=== PATIENT | male | born 1985 | race Caucasian/White ===

== ENCOUNTER 2019-11-20 20:13 | Emergency (ER) | payer OTHER ==
[2019-11-20 20:21] VITALS: BP 143/91; PULSE 117; RESP 18; TEMP 98.8
[2019-11-20 21:01] LABS: Basophils % (A) 0 %; Eosinophils # (A) 0.1 k/uL (0-0.7); Eosinophils % (A) 1 %; HCT 46.6 % (39.0-53.0); HGB 15.6 gm/dL (13.0-17.5); Lymphocytes % (A) 14 %; MCH 32.6 pg (25.0-35.0); MCHC 33.5 g/dL (31.0-37.0); MCV 97.4 fL (80.0-100.0); Mean Platelet Volume 7.2; Monocytes # (A) 0.6 k/uL (0-1.0); Monocytes % (A) 4 %; Neutrophils # (A) 10.9 k/uL (1.3-7.7); Neutrophils % (A) 79 %; Platelet Count 289 k/uL (150-450); RBC 4.78 m/uL (4.30-5.90); RDW 12.8 % (11.5-15.5); WBC 13.8 k/uL (3.8-10.6)
[2019-11-20 21:04] LABS: Creatine Kinase 124 U/L (55-170)
[2019-11-20] MEDS ORDERED: MORPHINE SULFATE 4 MG/ML SYRINGE IVP STA (21:05)
[2019-11-20 21:07] LABS: ALT 25 U/L (4-49); AST 23 U/L (17-59); African American GFR (CKD) >90 (>60 ml/min/1.73 sqM); Albumin 4.9 g/dL (3.5-5.0); Alcohol <10 mg/dL; Alkaline Phosphatase 50 U/L (38-126); Amylase 56 U/L (30-110); Anion Gap 11 mmol/L; Blood Urea Nitrogen 21 mg/dL (9-20); Calcium 9.7 mg/dL (8.4-10.2); Carbon Dioxide 27 mmol/L (22-30); Chloride 103 mmol/L (98-107); Glucose 107 mg/dL (74-99); Non-African American GFR(CKD) >90 (>60 ml/min/1.73 sqM); Potassium 4.3 mmol/L (3.5-5.1); Sodium 141 mmol/L (137-145); Total Bilirubin 0.3 mg/dL (0.2-1.3)
[2019-11-20 21:08] LABS: Appearance,Urine Clear (Clear); Bilirubin,Urine Negative (Negative); Blood,Urine Negative (Negative); Color,Urine Yellow; Glucose,Urine (UA) Negative (Negative); Ketones,Urine Negative (Negative); Leukocyte Esterase,Urine Negative (Negative); Nitrite,Urine Negative (Negative); Protein,Urine Negative (Negative); Specific Gravity,Urine 1.018 (1.001-1.035); Urobilinogen,Urine <2.0 mg/dL (<2.0)
[2019-11-20] MEDS ORDERED: KETOROLAC 30 MG/ML 1 ML VIAL IVP ONE (21:10)
[2019-11-20 21:17] LABS: Partial Thromboplastin Time 24.3 sec (22.0-30.0); Prothrombin Time 10.1 sec (9.0-12.0)
[2019-11-20 21:18] LABS: Creatine Kinase MB 0.8 ng/mL (0.0-2.4); Troponin I <0.012 ng/mL (0.000-0.034)
[2019-11-20 21:19] LABS: Amphetamine Screen,Urine Not Detected (NotDetected); Barbiturate Screen,Urine Not Detected (NotDetected); Benzodiazepines Screen,Urine Not Detected (NotDetected); Cocaine Screen,Urine Not Detected (NotDetected); Methadone Screen, Urine Not Detected (NotDetected); Opiate Screen,Urine Not Detected (NotDetected); Oxycodone Screen, Urine Not Detected (NotDetected); Phencyclidine Screen,Urine Not Detected (NotDetected); Tricyclic Antidepressant,Urine Not Detected (NotDetected); Urn Cannabinoid Scrn Not Detected (NotDetected)
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
[2019-11-20] MEDS ORDERED: LIDOCAINE 1%-EPI 1:100,000 20 ML VIAL SQ STA (22:51)
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
[2019-11-21] MEDS ORDERED: CEPHALEXIN 500 MG CAP PO STA (00:03)
== END 2019-11-21 00:15 | disposition home or self-care (01) ==
LOC: EC 20:13
DX: S89.302A Unspecified physeal fracture of lower end of left fibula, initial encounter for closed fracture (principal); S82.202A Unspecified fracture of shaft of left tibia, initial encounter for closed fracture; D72.829 Elevated white blood cell count, unspecified; V28.4XXA Motorcycle driver injured in noncollision transport accident in traffic accident, initial encounter; Y93.89 Activity, other specified; Y92.410 Unspecified street and highway as the place of occurrence of the external cause
CPT/HCPCS: 99284; 96374; 29515; 36415; 93005; 86900; 86901; 80053; 82150; 82550; 82553; 83605; 83690; 84484; 85025; 85610; 85730; 86850; 81003; 80306; 80320; 72170; 73590; 73610; 71045; J1885

== ENCOUNTER 2019-11-25 21:01 | Inpatient (IN) | payer OTHER ==
[2019-11-25] MEDS ORDERED: VANCOMYCIN IV PER PHARMACY 1 EACH MISC MISCELLANE PRN (21:50)
[2019-11-25] MEDS ORDERED: MORPHINE SULFATE 4 MG/ML SYRINGE IVP PRN (21:50)
[2019-11-25] MEDS ORDERED: PIPERACILLIN-TAZOBACTAM 3.375 GM in SODIUM CHLORIDE 0.9% 100 ML IVPB STA (21:55)
[2019-11-25 22:12] LABS: Basophils % (A) 0 %; Eosinophils # (A) 0.3 k/uL (0-0.7); Eosinophils % (A) 3 %; HCT 41.4 % (39.0-53.0); HGB 13.1 gm/dL (13.0-17.5); Lymphocytes # (A) 2.1 k/uL (1.0-4.8); Lymphocytes % (A) 20 %; MCH 30.5 pg (25.0-35.0); MCHC 31.7 g/dL (31.0-37.0); MCV 96.2 fL (80.0-100.0); Monocytes # (A) 0.7 k/uL (0-1.0); Monocytes % (A) 6 %; Neutrophils # (A) 7.5 k/uL (1.3-7.7); Neutrophils % (A) 69 %; Platelet Count 312 k/uL (150-450); RDW 12.5 % (11.5-15.5); WBC 10.8 k/uL (3.8-10.6)
[2019-11-25 22:25] LABS: ALT 28 U/L (4-49); AST 26 U/L (17-59); African American GFR (CKD) >90 (>60 ml/min/1.73 sqM); Albumin 4.2 g/dL (3.5-5.0); Alkaline Phosphatase 50 U/L (38-126); Anion Gap 9 mmol/L; Blood Urea Nitrogen 19 mg/dL (9-20); Calcium 9.4 mg/dL (8.4-10.2); Carbon Dioxide 28 mmol/L (22-30); Chloride 102 mmol/L (98-107); Glucose 110 mg/dL (74-99); Non-African American GFR(CKD) >90 (>60 ml/min/1.73 sqM); Sodium 139 mmol/L (137-145); Total Bilirubin 0.4 mg/dL (0.2-1.3); Total Protein 7.1 g/dL (6.3-8.2)
[2019-11-25] MEDS ORDERED: VANCOMYCIN 1,750 MG in SODIUM CHLORIDE 0.9% 500 ML 500 ML IVPB ONE (22:30)
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
[2019-11-25] MEDS ORDERED: SODIUM CHLORIDE 0.9% 1,000 ML IV ONE (23:08)
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
[2019-11-25] MEDS ORDERED: ACETAMINOPHEN TAB 325 MG TAB PO PRN (23:30)
[2019-11-25] MEDS ORDERED: NALOXONE 0.4 MG/ML 1 ML VIAL IV PRN (23:30)
[2019-11-25] MEDS: SODIUM CHLORIDE 0.9% 1,000 ML IV SCH (23:36)
[2019-11-26] MEDS: VANCOMYCIN 1,500 MG in SODIUM CHLORIDE 0.9% 250 ML IVPB SCH ×2 (08:22→14:00)
[2019-11-26] MEDS: PIPERACILLIN-TAZOBACTAM 3.375 GM in SODIUM CHLORIDE 0.9% 100 ML IVPB SCH ×2 (08:22→17:41)
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
--- NOTE | 2019-11-26 13:35 | US ---
EXAMINATION TYPE: US venous doppler duplex LE LT DATE OF EXAM: 11/26/2019 1:25 PM COMPARISON: NONE CLINICAL HISTORY: Swelling, pain. SIDE PERFORMED: Left TECHNIQUE: The lower extremity deep venous system is examined utilizing real time linear array sonog thanh with graded compression, doppler sonography and color-flow sonography. VESSELS IMAGED: External Iliac Vein (EIV) Common Femoral Vein Deep Femoral Vein Greater Saphenous Vein * Femoral Vein Popliteal Vein Small Saphenous Vein * Proximal Calf Veins (* superficial vessels) Left Leg: Negative for DVT IMPRESSION: 1. Left lower extremity ultrasound negative for deep venous thrombosis.
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
[2019-11-26] MEDS ORDERED: IV FLUID CONTINUATION 1,000 ML IV ONE (16:12)
[2019-11-26] MEDS ORDERED: ONDANSETRON 4 MG/2 ML VIAL IVP ONE (16:24)
[2019-11-26] MEDS ORDERED: LACTATED RINGERS 1,000 ML IV ONE (17:24)
[2019-11-26] MEDS ORDERED: HYDROcodone/APAP 5-325MG 1 EACH TAB PO PRN (18:20)
[2019-11-26] MEDS ORDERED: hydrOXYzine PAMOATE 25 MG CAP PO PRN (18:20)
[2019-11-26] MEDS ORDERED: SENNOSIDES-DOCUSATE SODIUM 1 EACH TAB PO PRN (18:20)
[2019-11-26] MEDS ORDERED: MEPERIDINE 50 MG/ML SYRINGE IVP ONE ×2 (18:22→18:50)
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
[2019-11-26] MEDS ORDERED: HYDROmorphone 1 MG/ML 1 ML SYRINGE IVP ONE (19:20)
[2019-11-26] MEDS ORDERED: SODIUM CHLORIDE 0.9% 1,000 ML IV ONE (19:29)
[2019-11-26] MEDS: HEPARIN SODIUM,PORCINE 5,000 UNIT/ML 1 ML VIAL SQ SCH (21:03)
[2019-11-26] MEDS: FAMOTIDINE 20 MG/2 ML VIAL IV SCH (21:03)
[2019-11-26] MEDS: HYDROcodone/APAP 5-325MG 1 EACH TAB PO PRN (22:08)
[2019-11-26] MEDS: SODIUM CHLORIDE 0.9% 1,000 ML IV SCH (23:11)
[2019-11-26] MEDS: CEFEPIME 2 GM in SODIUM CHLORIDE 0.9% 100 ML IVPB SCH (23:18)
[2019-11-27] MEDS: VANCOMYCIN 1,500 MG in SODIUM CHLORIDE 0.9% 250 ML IVPB SCH ×4 (00:16→22:53)
[2019-11-27] MEDS ORDERED: VANCOMYCIN TROUGH DUE 1 EACH MISC MISCELLANE ONE ×2 (05:00→21:00)
[2019-11-27] MEDS: SODIUM CHLORIDE 0.9% 1,000 ML IV SCH ×3 (05:21→22:54)
[2019-11-27 05:46] LABS: Basophils % (A) 1 %; Eosinophils # (A) 0.2 k/uL (0-0.7); Eosinophils % (A) 3 %; HCT 36.5 % (39.0-53.0); HGB 11.9 gm/dL (13.0-17.5); Lymphocytes # (A) 1.9 k/uL (1.0-4.8); Lymphocytes % (A) 24 %; MCH 32.1 pg (25.0-35.0); MCHC 32.7 g/dL (31.0-37.0); MCV 98.2 fL (80.0-100.0); Mean Platelet Volume 7.7; Monocytes # (A) 0.5 k/uL (0-1.0); Monocytes % (A) 6 %; Neutrophils # (A) 5.1 k/uL (1.3-7.7); Neutrophils % (A) 64 %; Platelet Count 295 k/uL (150-450); RBC 3.72 m/uL (4.30-5.90); RDW 12.5 % (11.5-15.5); WBC 7.9 k/uL (3.8-10.6)
[2019-11-27 05:57] LABS: African American GFR (CKD) >90 (>60 ml/min/1.73 sqM); Anion Gap 5 mmol/L; Blood Urea Nitrogen 11 mg/dL (9-20); Carbon Dioxide 28 mmol/L (22-30); Chloride 107 mmol/L (98-107); Glucose 106 mg/dL (74-99); Non-African American GFR(CKD) >90 (>60 ml/min/1.73 sqM); Sodium 140 mmol/L (137-145)
[2019-11-27] MEDS: HEPARIN SODIUM,PORCINE 5,000 UNIT/ML 1 ML VIAL SQ SCH ×2 (09:20→21:19)
[2019-11-27] MEDS: CEFEPIME 2 GM in SODIUM CHLORIDE 0.9% 100 ML IVPB SCH ×2 (09:20→21:19)
[2019-11-27] MEDS: FAMOTIDINE 20 MG/2 ML VIAL IV SCH ×2 (09:21→21:19)
[2019-11-27] MEDS: IBUPROFEN 400 MG TAB PO PRN ×2 (14:06→21:17)
--- NOTE | 2019-11-27 17:51 | P.PN ---
Subjective Progress Note Date: 11/27/19 This patient is a 34- year old male that is status-post irrigation and debridement of left leg wound with application of a wound vac on 11/26/[address] Vance. Today is post-operative day #1. Patient is examined bedside. Patient states he currently feels well, he did have a headache last night but it has subsided after he ate food. He is complaining of only mild pain in the left lower extremity. Wound vac remains in place. He denies any new complaints today. Patient denies chest pain, shortness of breath, nausea, vomiting, fevers, chills. He denies any new numbness or tingling of the left lower extremity. Vital signs stable. Objective - Vital Signs Vital signs: Vital Signs Temp 97.7 F 11/27/19 07:46 Pulse 78 11/27/19 07:46 Resp 14 11/27/19 08:19 BP 135/75 11/27/19 07:46 Pulse Ox 100 11/27/19 07:46 Intake & Output 11/26/19 11/27/19 11/27/19 18:59 06:59 18:59 Intake Total 800 300 800 Output Total 30 3300 Balance 770 -3000 800 Intake: IV 700 300 Oral 100 800 Output: Urine 3300 Estimated Blood Loss 30 Other: Voiding Method Toilet Toilet # Voids 1 - Exam On examination, patient is sitting in bed in no apparent distress. He is alert and orientated x3. On inspection of the left lower extremity, there is a wound vac in place with an overlying KOFI wrap. The KOFI wrap us clean, dry, and intact. The left foot is warm and well perfused, dorsalis pedis pulse +2. Patient is able to actively dorsiflex and plantar flex the foot. Sensation is intact to light touch of the foot, although patient states he experiences chronic numbness due to a prior injury. - Labs CBC & Chem 7: 11/27/19 05:34 11/27/19 05:34 Labs: Abnormal Lab Results - Last 24 Hours (Table) 11/27/19 11/27/19 Range/Units 05:34 05:34 RBC 3.72 L (4.30-5.90) m/uL Hgb 11.9 L (13.0-17.5) gm/dL Hct 36.5 L (39.0-53.0) % Glucose 106 H (74-99) mg/dL Calcium 8.0 L (8.4-10.2) mg/dL Microbiology - Last 24 Hours (Table) 11/26/19 17:48 Gram Stain - Preliminary Leg - Left Tissue Culture - Preliminary 11/26/19 17:48 Anaerobic Culture - Preliminary Leg - Left 11/26/19 17:48 Fungal Culture - Preliminary Leg - Left 11/26/19 17:48 Gram Stain - Preliminary Leg - Left Wound Culture - Preliminary 11/26/19 17:48 Fungal Culture - Preliminary Leg - Left 11/26/19 17:48 Anaerobic Culture - Preliminary Leg - Left 11/25/19 22:00 Blood Culture - Preliminary Blood No Growth after 24 hours Assessment and Plan Assessment: Traumatic laceration of the left lower leg, with surrounding cellulitis and abscess status-post irrigation and debridement with application of wound vac on 11/26/19 Left distal fibula fracture Plan: - We will plan for the OR tomorrow 11/28/19 for removal of the wound vac, irrigation and debridement with possible closure of the left leg wound. - Antibiotic management per infectious disease. Intraoperative cultures currently pending. - Pain management as needed. - Non-weight bearing left leg in tall CAM boot. - NPO diet at midnight.
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
--- NOTE | 2019-11-27 23:26 | PN ---
PROGRESS NOTE DATE OF SERVICE: 11/27/2019 REASON FOR FOLLOWUP: Left leg abscess. INTERVAL HISTORY: The patient was taken to the OR yesterday. He is status post drainage of the left leg infected hematoma. The patient has tolerated the procedure. Pain is currently controlled. No chest pain, shortness of breath or cough. No abdominal pain or diarrhea. PHYSICAL EXAMINATION: Blood pressure 135/79 with a pulse of 88, temperature 98.1. He is 96% on room air. General description is a young male lying in bed in no distress. RESPIRATORY SYSTEM: Unlabored breathing. Clear to auscultation anteriorly. HEART: S1, S2. Regular rate and rhythm. ABDOMEN: Soft. No tenderness. Left leg is currently dressed up with a wound V.A.C. No drainage on the dressing. LABS: Hemoglobin 11.9, white count 7.9, BUN of 11, creatinine 0.79. Vancomycin trough is low. Cultures are currently pending. DIAGNOSTIC IMPRESSION AND PLAN: Patient with a left leg abscess and cellulitis, status post surgical drainage. Cultures are currently pending. Patient to continue cefepime and vancomycin. He will likely need a PICC line; however, outpatient antibiotics depending upon the culture report. Continue with supportive care. MMODL / IJN: [id number] /
[2019-11-28] MEDS: VANCOMYCIN 1,500 MG in SODIUM CHLORIDE 0.9% 250 ML IVPB SCH ×2 (06:18→15:24)
[2019-11-28] MEDS: HEPARIN SODIUM,PORCINE 5,000 UNIT/ML 1 ML VIAL SQ SCH ×2 (08:52→22:30)
[2019-11-28] MEDS: FAMOTIDINE 20 MG/2 ML VIAL IV SCH ×2 (09:00→22:30)
[2019-11-28] MEDS: CEFEPIME 2 GM in SODIUM CHLORIDE 0.9% 100 ML IVPB SCH ×2 (09:00→22:29)
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
[2019-11-28 10:19] LABS: African American GFR (CKD) >90 (>60 ml/min/1.73 sqM); Anion Gap 4 mmol/L; Blood Urea Nitrogen 14 mg/dL (9-20); Calcium 8.5 mg/dL (8.4-10.2); Carbon Dioxide 27 mmol/L (22-30); Chloride 109 mmol/L (98-107); Glucose 95 mg/dL (74-99); Non-African American GFR(CKD) >90 (>60 ml/min/1.73 sqM); Potassium 4.7 mmol/L (3.5-5.1); Sodium 140 mmol/L (137-145)
[2019-11-28] MEDS ORDERED: IV FLUID CONTINUATION 1,000 ML IV ONE (12:35)
[2019-11-28] MEDS ORDERED: ONDANSETRON 4 MG/2 ML VIAL IVP ONE (12:41)
[2019-11-28] MEDS ORDERED: PROPOFOL 10 MG/ML 20 ML VIAL IV ONE (13:36)
[2019-11-28] MEDS ORDERED: LIDOCAINE 1% INJ 10MG/ML (20 ML MDV) ONE (13:36)
[2019-11-28] MEDS ORDERED: MIDAZOLAM 2 MG/2 ML VIAL ONE (13:36)
[2019-11-28] MEDS ORDERED: fentaNYL (PF) 50 MCG/ML 2 ML AMP ONE (13:36)
[2019-11-28] MEDS ORDERED: LACTATED RINGERS 1,000 ML IV ONE (14:13)
[2019-11-28] MEDS: HYDROcodone/APAP 5-325MG 1 EACH TAB PO PRN (15:14)
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
[2019-11-28] MEDS: SODIUM CHLORIDE 0.9% 1,000 ML IV SCH (19:29)
[2019-11-29] MEDS ORDERED: VANCOMYCIN 1,500 MG in SODIUM CHLORIDE 0.9% 250 ML IVPB SCH ×2
[2019-11-29] MEDS: IBUPROFEN 400 MG TAB PO PRN ×2 (02:20→21:50)
[2019-11-29] MEDS: diphenhydrAMINE 25 MG CAP PO PRN ×2 (02:37→21:51)
--- NOTE | 2019-11-29 02:55 | PN ---
PROGRESS NOTE DATE OF SERVICE: 11/28/2019 REASON FOR FOLLOWUP: Left leg abscess and cellulitis. INTERVAL HISTORY: The patient is currently afebrile, has been breathing comfortably. The patient denies having any chest pain. No shortness of breath or cough. No nausea, no vomiting. No abdominal pain. Pain to the left leg is currently controlled. PHYSICAL EXAMINATION: Blood pressure is 120/77 with a pulse of 63, temperature 98.1. He is 98% on room air. General description is a middle-aged male lying in bed in no distress. RESPIRATORY SYSTEM: Unlabored breathing, clear to auscultation anteriorly. HEART: S1, S2. Regular rate and rhythm. ABDOMEN: Soft, no tenderness. LABS: White count normal. Left leg wound culture did grow Citrobacter. DIAGNOSTIC IMPRESSION AND PLAN: Patient with left leg abscess, culture with Citrobacter. Continue with cefepime. Discontinue vancomycin and monitor clinical course closely. MMODL / IJN: [id number] /
--- NOTE | 2019-11-29 07:05 | P.OP ---
Date of Procedure: 11/28/19 Preoperative Diagnosis: Left leg abscess Postoperative Diagnosis: Same Procedure(s) Performed: 1. Irrigation and debridement of left leg abscess (and excisional debridement was performed using a scalpel of nonviable skin and subcutaneous tissue down to the level of muscle) 2. Partial closure of left leg wound 3. Removal of wound VAC, left leg Anesthesia: ENOCH Surgeon: Rubin Vance Payroll Administrator #1: Linda Briscoe Pathology: none sent Condition: stable Disposition: PACU Indications for Procedure: The patient is a very pleasant 34-year-old male who underwent an irrigation and debridement of the left leg abscess this past Tuesday. A wound VAC was applied. Due to the amount of purulence in his wound I recommended repeat irrigation and debridement of the wound and exploration to make sure that all the infection had been cleared. We discussed potential risks and complications of this of which the patient is well aware. He provided his consent to go forward with surgery. Operative Findings: There is a small amount of purulence which was thoroughly debrided and irrigated. The wound was partially closed over a Rolla drain. Description of Procedure: The patient was identified in preoperative holding and the correct left leg was marked with my initials. I reviewed the consent form with the patient and all of his questions were answered. The patient was then brought back to the operating room by anesthesia. He was positioned on the OR table where general anesthetic was given. The wound VAC was taken off the left leg. A bump was placed in the left buttock. The left leg was then prepped and draped in the standard sterile fashion. Prior to starting surgery timeout was performed identifying the correct patient, operative extremity, and procedure. I began by exploring the wound. There is a small amount of purulence which was thoroughly irrigated using 3 L of sterile saline and cystoscopy tubing. An excisional debridement was then performed using a scalpel of nonviable skin and subcutaneous tissue down to the level of the muscle. Overall the wound appeared clean. The wound was partially closed with 3-0 nylon sutures and a Rolla drain was inserted into the abscess cavity to allow continued drainage. A sterile dressing was applied. The patient was awoken from his anesthetic, transferred from the OR table to [facility], and brought to recovery having tolerated the procedure well. Plan: The patient is to remain nonweightbearing on his left leg in a boot. I would like to leave the Jenny drain in for 24-48 hours to allow continued drainage from the wound. At that time we will pull the drain and then defer wound care to infectious disease. I will defer all decisions regarding choice of antibiotic, route of administration, and duration of treatment to infectious disease. We will continue to closely follow the patient while he is an inpatient.
[2019-11-29] MEDS ORDERED: diphenhydrAMINE 25 MG CAP PO PRN (07:51)
[2019-11-29] MEDS ORDERED: diphenhydrAMINE 25 MG CAP PO STA (07:51)
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
[2019-11-29] MEDS: FAMOTIDINE 20 MG/2 ML VIAL IV SCH (08:19)
[2019-11-29] MEDS: HEPARIN SODIUM,PORCINE 5,000 UNIT/ML 1 ML VIAL SQ SCH ×2 (08:19→21:51)
[2019-11-29] MEDS: SODIUM CHLORIDE 0.9% 1,000 ML IV SCH ×2 (08:19→21:49)
[2019-11-29] MEDS: CEFEPIME 2 GM in SODIUM CHLORIDE 0.9% 100 ML IVPB SCH (08:19)
[2019-11-29 08:22] LABS: African American GFR (CKD) >90 (>60 ml/min/1.73 sqM); Anion Gap 5 mmol/L; Blood Urea Nitrogen 15 mg/dL (9-20); Calcium 8.5 mg/dL (8.4-10.2); Carbon Dioxide 27 mmol/L (22-30); Chloride 107 mmol/L (98-107); Glucose 109 mg/dL (74-99); Non-African American GFR(CKD) >90 (>60 ml/min/1.73 sqM); Potassium 4.5 mmol/L (3.5-5.1); Sodium 139 mmol/L (137-145)
--- NOTE | 2019-11-29 10:35 | P.PN ---
Subjective Progress Note Date: 11/29/19 This patient is a 34- year old male that is status-post irrigation and debridement of left leg wound with application of a wound vac on 11/26/19, and irrigation and debridement of left leg abscess, partial closure of left leg wound, and removal of wound vac on 11/28/19. Patient is examined bedside this morning. Patient is doing well with no complaints this morning. He states he noticed drainage through the Farrukh wrap. He states he has been up ambulating around his room, although he has been remaining nonweightbearing on the operative site. He is tolerating his diet well. Patient denies chest pain, shortness of breath, nausea, vomiting, fevers, chills. He denies any new numbness or tingling of the left lower extremity. Vital signs stable. Objective - Vital Signs Vital signs: Vital Signs Temp 97.7 F 11/29/19 08:13 Pulse 75 11/29/19 08:13 Resp 16 11/29/19 08:13 BP 132/74 11/29/19 08:13 Pulse Ox 96 11/29/19 08:13 Intake & Output 11/28/19 11/29/19 11/29/19 18:59 06:59 18:59 Intake Total 2380 600 540 Output Total 5 1800 Balance 2375 -1200 540 Weight 89.8 kg Intake: IV 1200 Intake, IV Titration 600 Amount Lactated Ringers 1,000 ml 100 @ 0 mls/hr IV [facility] Rx#:[id number] Vancomycin 1,500 mg In 500 Sodium Chloride 0.9% 250 ml @ 125 mls/hr IVPB Q8H [facility] Rx#:[id number] Oral 580 600 240 Other 300 Output: Urine 1800 Estimated Blood Loss 5 Other: Voiding Method Urinal Urinal # Voids 5 - Exam On examination, patient is sitting in bed in no apparent distress. He is alert and orientated x3. On inspection of the left lower extremity, there is an Farrukh wrap in place with drainage through the Farrukh wrap. Farrukh wrap was taken down and a dressing is placed. Jenny drain in place. The left foot is warm and well perfused, dorsalis pedis pulse +2. Patient is able to actively dorsiflex, plantar flex, valery, and invert the foot. Sensation is intact to light touch of the foot, although patient states he experiences chronic intermittent numbness due to a prior injury. Vital signs stable. - Labs CBC & Chem 7: 11/27/19 05:34 11/29/19 07:49 Labs: Abnormal Lab Results - Last 24 Hours (Table) 11/29/19 Range/Units 07:49 Glucose 109 H (74-99) mg/dL Microbiology - Last 24 Hours (Table) 11/25/19 22:00 Blood Culture - Preliminary Blood No Growth after 72 hours 11/26/19 17:48 Gram Stain - Final Leg - Left Tissue Culture - Final Citrobacter braakii Aeromonas hydrophila Enterobacte amnigenus biogrp 2 Group D Enterococcus 11/26/19 17:48 Anaerobic Culture - Preliminary Leg - Left 11/26/19 17:48 Anaerobic Culture - Preliminary Leg - Left 11/26/19 17:48 Gram Stain - Final Leg - Left Wound Culture - Final Citrobacter braakii Assessment and Plan Assessment: - Traumatic laceration of the left lower leg, with surrounding cellulitis and abscess status-post irrigation and debridement of left leg with application of a wound vac on 11/26/19, and irrigation and debridement of left leg abscess, partial closure of left leg wound, and removal of wound vac on 11/28/19 - Left distal fibula fracture Plan: - Keep current dressing in place on the left lower extremity. [place] drain is left in place and, we'll plan to pull the drain tomorrow. - Antibiotic management per infectious disease. Intraoperative cultures finalized, Dr. Pena planning for PICC line placement. - Pain management as needed. - Non-weight bearing left leg in tall CAM boot. - We will continue to follow patient closely.
[2019-11-29] MEDS ORDERED: CALAMINE/ZINC OXIDE LOTION 177 ML BTL TOPICAL PRN (11:25)
--- NOTE | 2019-11-29 15:00 | PN ---
PROGRESS NOTE DATE OF SERVICE: 11/29/2019 REASON FOR FOLLOWUP: Left leg abscess and cellulitis. INTERVAL HISTORY: Patient is currently afebrile, has been breathing comfortably. Overall pain and discomfort to the left leg is currently improved. No chest pain, shortness of breath or cough. No abdominal pain or diarrhea; some rash to the lower back area. PHYSICAL EXAMINATION: Blood pressure 132/74 with a pulse of 75. Temperature is 97.9, pulse ox 96% on room air. General description is a middle-aged male lying in bed in no distress. Respiratory system: Unlabored breathing. Clear to auscultation anteriorly. Heart S1, S2. Regular rate and rhythm. Abdomen: Soft. Nontender. Left leg is currently dressed up. The low back did have a rash, but no rash on the rest of the body. LABS: Wound culture now showing Citrobacter, Pseudomonas, Enterobacter, switched to Cefepime after showing group D Enterococcus. DIAGNOSTIC IMPRESSION AND PLAN: Patient with left leg abscess status post surgical drainage of multiple pathogens, currently on cefepime. Waiting for the Enterococcus. Antibiotics will be switched to Zosyn that should cover all the 4 bacteria and close outpatient followup. MMODL / IJN: [id number] /
[2019-11-29] MEDS: PIPERACILLIN-TAZOBACTAM 3.375 GM in SODIUM CHLORIDE 0.9% 100 ML IVPB SCH (17:05)
[2019-11-29] MEDS: FAMOTIDINE 20 MG TAB PO SCH (21:51)
[2019-11-30] MEDS: PIPERACILLIN-TAZOBACTAM 3.375 GM in SODIUM CHLORIDE 0.9% 100 ML IVPB SCH ×4 (02:18→23:23)
[2019-11-30] MEDS: HEPARIN SODIUM,PORCINE 5,000 UNIT/ML 1 ML VIAL SQ SCH ×2 (09:00→21:53)
[2019-11-30] MEDS ORDERED: ASPIRIN 81 MG PO SCH (09:00)
[2019-11-30] MEDS: FAMOTIDINE 20 MG TAB PO SCH ×2 (09:03→21:53)
[2019-11-30] MEDS ORDERED: LIDOCAINE 1% INJ 10MG/ML (20 ML MDV) ONE (12:35)
[2019-11-30] MEDS ORDERED: LIDOCAINE 1% INJ 10MG/ML (20 ML MDV) SQ ONE (12:41)
--- NOTE | 2019-11-30 12:50 | P.PN ---
Subjective Progress Note Date: 11/30/19 This patient is a 34- year old male that is status-post irrigation and debridement of left leg wound with application of a wound vac on 11/26/19, and irrigation and debridement of left leg abscess, partial closure of left leg wound, and removal of wound vac on 11/28/19. 11/30/19: Patient is examined bedside this morning. Patient states he is feeling well and has no complaints. Patient does have a dressing to the left lower leg. Jenny drain is still in place. Currently awaiting PICC line placement per Dr. Pena. Patient has not noticed any drainage through the dressing. Patient states he has been remaining nonweightbearing on the left lower extremity. Patient has been tolerating his diet well. Patient denies chest pain, shortness of breath, nausea, vomiting, fevers, chills. Vital signs stable. Objective - Vital Signs Vital signs: Vital Signs Temp 97.7 F 11/30/19 08:56 Pulse 63 11/30/19 08:56 Resp 16 11/30/19 08:56 BP 125/80 11/30/19 08:56 Pulse Ox 97 11/30/19 08:56 Intake & Output 11/29/19 11/30/19 11/30/19 18:59 06:59 18:59 Intake Total 960 1000 240 Output Total 900 900 Balance 960 100 -660 Intake: Oral 660 1000 240 Other 300 Output: Urine 900 900 Other: Voiding Method Urinal Urinal Urinal # Voids 2 1 - Exam On examination, patient is sitting in bed in no apparent distress. He is alert and orientated x3. On inspection of the left lower extremity, there is an Farrukh wrap in place with no drainage through the Farrukh wrap. Farrukh wrap was taken down and dressing removed. There is a laceration to the left lower calf that is well approximated with nylon sutures. Jenny drain was removed bedside. Patient tiny erated this well. The left foot is warm and well perfused, dorsalis pedis pulse +2. Patient is abl e to actively dorsiflex, plantar flex, valery, and invert the foot. Sensation is intact to light touch of the foot, although patient states he experiences chronic intermittent numbness due to a prior injury. Vital signs stable. - Labs CBC & Chem 7: 11/27/19 05:34 11/29/19 07:49 Labs: Microbiology - Last 24 Hours (Table) 11/25/19 22:00 Blood Culture - Preliminary Blood No Growth after 96 hours Assessment and Plan Assessment: - Traumatic laceration of the left lower leg, with surrounding cellulitis and abscess status-post irrigation and debridement of left leg with application of a wound vac on 11/26/19, and irrigation and debridement of left leg abscess, partial closure of left leg wound, and removal of wound vac on 11/28/19 - Left distal fibula fracture Plan: - [place] drain was removed bedside today. Moving forward, we will defer all wo und care to the wound care team/Dr. Pena. - Antibiotic management per infectious disease. Intraoperative cultures finalized, patient to undergo PICC line placement today. - Pain management as needed. - Non-weight bearing left leg in tall CAM boot. - We will continue to follow patient peripherally and make recommendations as needed.
--- NOTE | 2019-11-30 13:53 | IR ---
PICC LINE PLACEMENT: HISTORY: Infection requiring long-term antibiotic therapy PROCEDURE: Ultrasound and fluoroscopic guidance of PICC line placement. COMPLICATIONS: None ANESTHESIA: 1. 1% Lidocaine locally. FINDINGS/TECHNIQUE: The procedure was explained to the patient. The risks, complications, benefits and alternatives were discussed and any questions were answered. Informed consent was obtained. The patient was placed supine on the fluoroscopic table and prepped and draped in the usual sterile fash ion. Utilizing a 21 gauge needle and sonographic and fluoroscopic guidance, access in the left basi lic vein was achieved and there is placement of a 0.018 guidewire. The vein is patent. A 4-F sheath was placed over the guidewire. The guidewire and dilator were removed and a 4-F. PICC line was plac ed through the sheath with the tip at the level of the SVC. The sheath was removed, the catheter was flushed and sutured into position. The patient was stable throughout the procedure and remained sta ble upon discharge from the Department of Radiology. The vein puncture was patent under ultrasound. A [place] scale image was obtained to document patency of the vein punctured. All elements of the maximal barrier technique were utilized. FLUOROSCOPY TIME: 0.1 minutes and one images submitted IMPRESSION: Successful PICC line placement under ultrasound and fluoroscopic guidance.
--- NOTE | 2019-11-30 14:10 | XR ---
EXAMINATION TYPE: XR chest 1V DATE OF EXAM: 11/30/2019 COMPARISON: 11/20/2019 HISTORY: PICC line placement TECHNIQUE: Single frontal view of the chest is obtained. FINDINGS: There is no focal air space opacity, pleural effusion, or pneumothorax seen. The cardiac silhouette size is within normal limits. The osseous structures are intact. PICC line is seen with tip overlying the SVC. IMPRESSION: 1. PICC line seen with the tip overlying the SVC..
--- NOTE | 2019-11-30 16:16 | PN ---
PROGRESS NOTE DATE OF SERVICE: 11/30/2019 REASON FOR FOLLOWUP: Left leg abscess and cellulitis. INTERVAL HISTORY: The patient is currently afebrile. The patient is breathing comfortably. Overall pain and discomfort to the left leg have improved. No chest pain or shortness of breath or cough. No abdominal pain or diarrhea. PHYSICAL EXAMINATION: Blood pressure 149/73 with a pulse of 66, temperature 98.4. He is 98% on room air. General description is a young male lying in bed in no distress. RESPIRATORY SYSTEM: Unlabored breathing. Clear to auscultation anteriorly. HEART: S1, S2. Regular rate and rhythm. ABDOMEN: Soft. No tenderness. LABS: No new labs have been obtained today. Culture has been finalized with multiple pathogens sensitive to Zosyn. Enterococcus sensitivity still pending. DIAGNOSTIC IMPRESSION AND PLAN: Patient with left leg abscess and cellulitis, status post surgical drainage. Culture with multiple pathogens. He is covered with Zosyn; to continue with extended dose at 3.375 grams q.8 hours for a total of 2 weeks. Local wound care with dry Aquacel Silver packing of the wound and close outpatient followup. MMODL / IJN: [id number] /
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
[2019-11-30] MEDS: IBUPROFEN 400 MG TAB PO PRN (23:23)
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
[2019-12-01] MEDS: HEPARIN SODIUM,PORCINE 5,000 UNIT/ML 1 ML VIAL SQ SCH ×2 (09:21→21:57)
[2019-12-01] MEDS: FAMOTIDINE 20 MG TAB PO SCH ×2 (09:44→21:58)
[2019-12-01] MEDS: PIPERACILLIN-TAZOBACTAM 3.375 GM in SODIUM CHLORIDE 0.9% 100 ML IVPB SCH ×2 (09:44→16:28)
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
[2019-12-01] MEDS: IBUPROFEN 400 MG TAB PO PRN (22:11)
--- NOTE | 2019-12-01 23:38 | PN ---
PROGRESS NOTE DATE OF SERVICE: 12/01/2019 REASON FOR FOLLOWUP: Left leg abscess and cellulitis. INTERVAL HISTORY: The patient is currently afebrile, has been breathing comfortably. Denies having any chest pain or shortness of breath or cough. No nausea, vomiting, or any worsening pain to the left leg area. PHYSICAL EXAMINATION: Blood pressure is 144/90 with a pulse of 100, temperature of 98.3, he is 97% on room air. General description is a middle-aged male lying in bed in no distress. Respiratory system: Unlabored breathing, clear to auscultation anteriorly. Heart S1, S2. Regular rhythm and rate. Abdomen soft. No tenderness. Left leg dressed, no drainage on the dressing. LABS: No new labs have been obtained today. DIAGNOSTIC IMPRESSION AND PLAN: Patient with left leg abscess and cellulitis status post surgical drainage. Culture has been multiple pathogens. The patient is currently covered with Zosyn in view of the multiple organism he has grown. Currently waiting for the outpatient IV antibiotic arrangement. Local care to continue as ordered and repeat the labs tomorrow. Continue supportive care. MMODL / IJN: [id number] /
[2019-12-02] MEDS: PIPERACILLIN-TAZOBACTAM 3.375 GM in SODIUM CHLORIDE 0.9% 100 ML IVPB SCH ×3 (00:19→16:03)
[2019-12-02 07:07] LABS: Basophils # (A) 0.1 k/uL (0-0.2); Basophils % (A) 1 %; Eosinophils # (A) 0.4 k/uL (0-0.7); Eosinophils % (A) 4 %; HCT 40.2 % (39.0-53.0); Lymphocytes # (A) 2.4 k/uL (1.0-4.8); Lymphocytes % (A) 26 %; MCH 31.9 pg (25.0-35.0); MCHC 32.4 g/dL (31.0-37.0); MCV 98.6 fL (80.0-100.0); Mean Platelet Volume 7.2; Monocytes # (A) 0.5 k/uL (0-1.0); Monocytes % (A) 5 %; Neutrophils # (A) 5.6 k/uL (1.3-7.7); Neutrophils % (A) 61 %; Platelet Count 390 k/uL (150-450); RBC 4.08 m/uL (4.30-5.90); RDW 12.9 % (11.5-15.5); WBC 9.1 k/uL (3.8-10.6)
[2019-12-02 07:30] LABS: African American GFR (CKD) >90 (>60 ml/min/1.73 sqM); Anion Gap 6 mmol/L; Blood Urea Nitrogen 22 mg/dL (9-20); Calcium 9.2 mg/dL (8.4-10.2); Carbon Dioxide 27 mmol/L (22-30); Chloride 107 mmol/L (98-107); Glucose 97 mg/dL (74-99); Non-African American GFR(CKD) >90 (>60 ml/min/1.73 sqM); Potassium 5.1 mmol/L (3.5-5.1); Sodium 140 mmol/L (137-145)
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
[2019-12-02] MEDS: HEPARIN SODIUM,PORCINE 5,000 UNIT/ML 1 ML VIAL SQ SCH ×2 (09:23→21:52)
[2019-12-02] MEDS: FAMOTIDINE 20 MG TAB PO SCH ×2 (09:48→21:52)
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
[2019-12-03] MEDS: PIPERACILLIN-TAZOBACTAM 3.375 GM in SODIUM CHLORIDE 0.9% 100 ML IVPB SCH ×4 (00:02→23:41)
--- NOTE | 2019-12-03 03:40 | PN ---
PROGRESS NOTE DATE OF SERVICE: 12/02/2019 REASON FOR FOLLOWUP: Left lateral leg abscess and cellulitis. INTERVAL HISTORY: The patient is currently afebrile, has been breathing comfortably. Denies having any chest pain, shortness of breath or cough. No nausea, vomiting. No abdominal pain. Pain to the left leg is currently controlled. PHYSICAL EXAMINATION: Blood pressure is 134/87 with a pulse of 100, temperature 98.1. He is 98% on room air. General description is a middle-aged male lying in bed in no distress. RESPIRATORY SYSTEM: Unlabored breathing, clear to auscultation anteriorly. HEART: S1, S2. Regular rate and rhythm. ABDOMEN: Soft, no tenderness. Left leg is currently dressed up. No obvious drainage on the dressing. LABS: Hemoglobin is 13, white count 9.1, creatinine 0.97. DIAGNOSTIC IMPRESSION AND PLAN: 1. Patient with left leg abscess cellulitis status post drainage. Culture positive for multiple pathogens. Patient is covered with [employer] to continue planning for at least 2 weeks of antibiotic in the outpatient setting. We are waiting for insurance authorization. Local care with Aquacel packing of the wound and Farrukh wrap to keep the swelling down. 2. The patient low back rash. Clinically responding to calamine lotion, to continue. MMODL / IJN: [id number] /
[2019-12-03] MEDS: HEPARIN SODIUM,PORCINE 5,000 UNIT/ML 1 ML VIAL SQ SCH ×2 (08:27→20:25)
[2019-12-03] MEDS: FAMOTIDINE 20 MG TAB PO SCH ×2 (08:27→20:25)
--- NOTE | 2019-12-03 13:05 | PN ---
PROGRESS NOTE REASON FOR FOLLOWUP: Left leg abscess and cellulitis. INTERVAL HISTORY: Patient is currently afebrile. He is breathing comfortably. Denies any chest pain or cough. No nausea, vomiting, abdominal pain, or any worsening pain to the left leg area. PHYSICAL EXAMINATION: Blood pressure 130/81 with a pulse of 76. Temperature 97.8. He is 97% on room air. General description is a middle-aged male lying in bed in no distress. Respiratory system: Unlabored breathing. Clear to auscultation anteriorly. Heart S1, S2. Regular rate and rhythm. Left leg swelling has improved. Minimal drainage on the dressing. LABS: Hemoglobin 13.1, white count 9.1, BUN of 22, creatinine 0.97. DIAGNOSTIC IMPRESSION AND PLAN: Patient with left leg abscess and cellulitis status post surgical drainage. Culture with multiple pathogen. Still waiting for insurance approval of the antibiotic before discharge. Local care to continue as ordered and close outpatient followup. MMODL / IJN: [id number] /
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
[2019-12-03 16:00] VITALS: RESP 18
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
[2019-12-04] MEDS: PIPERACILLIN-TAZOBACTAM 3.375 GM in SODIUM CHLORIDE 0.9% 100 ML IVPB SCH ×2 (08:07→15:42)
[2019-12-04] MEDS: FAMOTIDINE 20 MG TAB PO SCH (08:07)
[2019-12-04] MEDS: HEPARIN SODIUM,PORCINE 5,000 UNIT/ML 1 ML VIAL SQ SCH (08:08)
[2019-12-04 11:37] VITALS: BP 136/75; PULSE 97; TEMP 97.6
[2019-12-04 13:25] VITALS: BMI 27.6
[2019-12-04] MEDS ORDERED: ASPIRIN 81 MG PO SCH (13:45)
--- NOTE | 2019-12-04 13:55 | PN ---
PROGRESS NOTE DATE OF SERVICE: 12/04/2019 REASON FOR FOLLOWUP: Left leg abscess and cellulitis. INTERVAL HISTORY: Patient is currently afebrile. The patient is breathing comfortably. The patient denies having any chest pain or shortness of breath or cough. Overall pain and discomfort to left leg has improved. Currently waiting for insurance authorization for the home care to be discharged. On examination, blood pressure 136/75 with a pulse of 97, temperature 97.6. He is 95% on room air. General description is a young male lying in bed in no distress. Respiratory system: Unlabored breathing. Clear to auscultation anteriorly. Heart S1, S2. Regular rate and rhythm. Abdomen soft, no tenderness. Left leg swelling and redness has improved. LABS: No new labs have been obtained today. DIAGNOSTIC IMPRESSION AND PLAN: Patient with left leg abscess and cellulitis status post surgical drainage currently waiting for the outpatient home care arranged. If any problems with getting his IV antibiotic approved, we will switch him to oral antibiotic instead of the Zosyn. Discussed further with the cyanide case hardener working on discharge. Continue supportive care. MMODL / IJN: [id number] /
== END 2019-12-04 16:15 | disposition home health service (06) | DRG 581 ==
LOC: EC 21:01 → 1SOBS 22:48 → OBSVTOIN 11-27 10:22
PROVIDERS: ADMIT Hospitalist; ATTEND Hospitalist
PROC: 0KBT0ZZ Excision of Left Lower Leg Muscle, Open Approach (ICD-10-PCS; principal; 2019-11-26 17:24)
PROC: 0KBT0ZZ Excision of Left Lower Leg Muscle, Open Approach (ICD-10-PCS; 2019-11-29)
PROC: 02HV33Z Insertion of Infusion Device into Superior Vena Cava, Percutaneous Approach (ICD-10-PCS; 2019-11-30)
DX: L02.416 Cutaneous abscess of left lower limb (principal); L03.116 Cellulitis of left lower limb; S81.812A Laceration without foreign body, left lower leg, initial encounter; G43.909 Migraine, unspecified, not intractable, without status migrainosus; I10 Essential (primary) hypertension; K21.9 Gastro-esophageal reflux disease without esophagitis; R21 Rash and other nonspecific skin eruption; S82.832A Other fracture of upper and lower end of left fibula, initial encounter for closed fracture; S82.52XA Displaced fracture of medial malleolus of left tibia, initial encounter for closed fracture; B96.89 Other specified bacterial agents as the cause of diseases classified elsewhere; Z11.59 Encounter for screening for other viral diseases
CPT/HCPCS: 36415; 36573; 71045; 80048; 80053; 80202; 83605; 85025; 86140; 87040; 87070; 87075; 87077; 87102; 87186; 87205; 96365; 96367; 99285